=== PATIENT | male | born 1970 | race Caucasian/White ===

== ENCOUNTER → 2021-04-24 | Day surgery (SDC) | payer SELFPAY ==
[~2021-04-24] VITALS: Ht 182.8 cm; Wt 93.0 kg
[~2021-04-24] MED LIST: HYDROCODONE BIT1 T11 PO; KEFLEX500 MG PO
[2021-04-24 14:37] LABS: BASO % 0.3 % (0.0-1.0); EOS # 0.3 10*3/uL (0.0-0.4); EOS % 3.5 % (1.0-4.0); HEMATOCRIT 43.7 % (42.0-52.0); LYMPH # 1.8 10*3/uL (1.3-4.4); LYMPH % 20.4 % (27.0-41.0); MEAN CELL VOLUME 96.3 fl (80.0-94.0); MEAN CORPUSCULAR HGB 33.5 pg (27.0-31.0); MEAN CORPUSCULAR HGB CONC 34.8 g/dl (33.0-37.0); MEAN PLATELET VOLUME 11.1 fl (9.6-12.3); MONO # 0.7 10*3/uL (0.1-1.0); MONO % 7.6 % (3.0-9.0); NEUT # 6.1 10*3/uL (2.3-7.9); PLATELET COUNT AUTOMATED 208 10*3/uL (130-400); RED BLOOD COUNT 4.54 10*6/uL (4.50-5.90); RED CELL DISTRI WIDTH 11.9 % (0-14.5)
[2021-04-24 14:51] LABS: ALBUMIN 3.7 gm/dl (3.1-4.5); ALKALINE PHOSPHATASE 72 U/L (45-117); BUN 14 mg/dl (7-24); CHLORIDE 111 mmol/L (98-107); CREATININE 1.04 mg/dL (0.70-1.30); POTASSIUM 3.6 mmol/L (3.5-5.1); SGOT/AST 19 IU/L (3-35); SGPT/ALT 42 U/L (12-78); SODIUM 140 mmol/L (136-145); TOTAL PROTEIN 7.3 gm/dL (6.4-8.2)
[2021-04-24 15:50] VITALS: BP 155/88
[2021-04-24 18:08] VITALS: BP 133/77
[2021-04-24 18:23] VITALS: BP 145/76
[2021-04-24 18:38] VITALS: BP 167/89
[2021-04-24 18:53] VITALS: BP 159/88
[2021-04-24 19:07] VITALS: BP 168/96
== END | disposition home or self-care (01) ==
LOC: ED 13:13 → SDC 16:04
PROVIDERS: Nurse Practitioner Family; ATTEND Orthopaedic Surgery
DX: S91.041A Puncture wound with foreign body, right ankle, initial encounter (principal); S82.54XA Nondisplaced fracture of medial malleolus of right tibia, initial encounter for closed fracture; I10 Essential (primary) hypertension; F17.210 Nicotine dependence, cigarettes, uncomplicated; W22.8XXA Striking against or struck by other objects, initial encounter; Y93.89 Activity, other specified; Y92.89 Other specified places as the place of occurrence of the external cause; Y99.8 Other external cause status

== ENCOUNTER → 2021-07-05 | Outpatient (CLI) | payer SELFPAY | LOC: ORTHO 00:22 | PROVIDERS: ATTEND Orthopaedic Surgery | DX: S82.54XD Nondisplaced fracture of medial malleolus of right tibia, subsequent encounter for closed fracture with routine healing (principal); X58.XXXD Exposure to other specified factors, subsequent encounter ==